=== PATIENT | female | born 1980 | race Asian ===

== ENCOUNTER 2016-06-19 15:12 | Emergency (ER) | payer OTHER, MEDICAID ==
[2016-06-19 15:44] VITALS: BP 126/95
[2016-06-19] MEDS ORDERED: Acetaminophen TAB* 325 MG PO ONE (21:18)
--- NOTE | 2016-06-19 21:24 | ED ---
Back Pain - HPI Summary HPI Summary: 35 F who is currently breast feeding presents wtih fall on tailbone today. She was walking outside when she slipped and fell on the ice and landed on her tailbone. She states the pain was okay until she started to stand for a long time and then the pain increased. She has not taken anything for the pain. - History of Current Complaint Chief Complaint: EDBackInjuryPain Stated Complaint: FALL TAILBONE PAIN Time Seen by Provider: 06/19/16 21:14 Pain Intensity: 6 - Allergies/Home Medications Allergies/Adverse Reactions: Allergies Allergy/AdvReac Type Severity Reaction Status Date / Time No Known Allergies Allergy Verified 06/19/16 15:41 PMH/Surg Hx/FS Hx/Imm Hx Endocrine/Hematology History: Reports: Hx Thyroid Disease - Pt on Levothyroxine- had thyroidectomy d/t cancer of thyroid Infectious Disease History: No Infectious Disease History: Denies: Traveled Outside the [place] in Last 30 Days - Social History Alcohol Use: None Substance Use Type: Reports: None Smoking Status (MU): Never Smoked Tobacco Review of Systems Negative: Fever Negative: Chest Pain Negative: Shortness Of Breath Positive: Myalgia - tailbone pain All Other Systems Reviewed And Are Negative: Yes Physical Exam Triage Information Reviewed: Yes Vital Signs On Initial Exam: Initial Vitals Temp Pulse Resp BP Pulse Ox 98.2 F 76 18 126/95 98 06/19/16 15:41 06/19/16 15:41 06/19/16 15:41 06/19/16 15:41 06/19/16 15:41 Vital Signs Reviewed: Yes Appearance: Positive: Well-Appearing Skin: Positive: Warm, Dry Head/Face: Positive: Normal Head/Face Inspection Eyes: Positive: Normal, Conjunctiva Clear ENT: Positive: Normal ENT inspection, Pharynx normal, TMs normal Respiratory/Lung Sounds: Positive: Clear to Auscultation, Breath Sounds Present Cardiovascular: Positive: Normal, RRR Musculoskeletal: Positive: Other - no ecchymosis noted, tender over coccyx area Neurological: Positive: Normal Gait Diagnostics - Vital Signs Vital Signs Temp Pulse Resp BP Pulse Ox 06/19/16 15:41 98.2 F 76 18 126/95 98 - Laboratory Lab Statement: Any lab studies that have been ordered have been reviewed, and results considered in the medical decision making process. - Radiology coccyx Xray Interpretation: Positive (See Comments) - IMPRESSION: No recent fractures identified although there is deformity presumably from prior injury. Radiology Interpretation Completed By: Radiologist Back Pain Course/Dx - Course Course Of Treatment: 35 F who is currently breast feeding had mechanical fall and landed on tailbone, tender to coccyx area, xray showed previous injury no acute injury, will treat conservatively patient agrees with plan - Diagnoses Differential Diagnosis/HQI/PQRI: Positive: Fracture, Strain, Sprain Provider Diagnoses: Coccygeal injury Discharge - Discharge Plan Condition: Good Disposition: HOME Patient Education Materials: Coccyx Injury (ED) Referrals: Tim Garsia MD [Primary Care Provider] - Additional Instructions: Take Tylenol every 6 hours for pain Use doughnut pillow to avoid putting pressure on area Increase fiber intake Heat/ice area Follow up with primary in 5 days Return to ED if develop any new or worsening symptoms
--- NOTE | 2016-06-19 22:19 | RAD ---
Indication: Tailbone injury. 2 views of the sacrum and coccyx demonstrates no recent fracture although deformity from prior injury is present. IMPRESSION: No recent fractures identified although there is deformity presumably from prior injury.
== END 2016-06-19 22:40 | disposition home or self-care (01) ==
LOC: ED 15:12
DX: S39.92XA Unspecified injury of lower back, initial encounter (principal); M79.1 Myalgia; W00.9XXA Unspecified fall due to ice and snow, initial encounter; Y93.9 Activity, unspecified; Y92.9 Unspecified place or not applicable
CPT/HCPCS: 72220; 99282; A9270-GY